=== PATIENT | female | born 1965 | race Caucasian/White ===

== ENCOUNTER → 2016-11-01 | Outpatient (CLI) | payer BC ==
[~2016-11-01] MED LIST: BCPILLS PO; BUSP1TAB46 PO; DEXL30CA5 PO; PRTUNK
[2016-11-01 11:17] LABS: BASO ABS # 0.08 K/uL (0-0.2); COMPLETE YES; EOS % 3.8 %; HEMATOCRIT 42.5 % (37-47); LYMPH % 38.6 %; LYMPH ABS # 1.54 K/uL (1.2-3.4); MEAN CELL VOLUME 94.2 fL (80-100); MEAN CORPUSCULAR HEMOGLOBIN 32.2 pg (25-34); MEAN CORPUSCULAR HGB CONC 34.1 g/dl (32-36); MEAN PLATELET VOLUME 9.6 fL (7.4-10.4); MONO % 7.5 %; NEUT % 48.1 %; PLATELET COUNT 280 K/uL (130-400); RED BLOOD COUNT 4.51 M/uL (4.2-5.4); WHITE BLOOD COUNT 3.99 K/uL (4.8-10.8)
[2016-11-01 11:40] LABS: ALT/SGPT 19 U/L (12-78); AST/SGOT 13 U/L (15-37); BLOOD UREA NITROGEN 8 mg/dl (7-18); BUN/CREATININE RATIO 9.5 (10-20); CALCIUM 8.8 mg/dl (8.5-10.1); CARBON DIOXIDE 28 mmol/L (21-32); CHLORIDE 107 mmol/L (98-107); CREATININE 0.88 mg/dl (0.60-1.20); GLUCOSE 95 mg/dl (70-99); MAGNESIUM 2.1 mg/dl (1.8-2.4); POTASSIUM 4.1 mmol/L (3.5-5.1); SODIUM 140 mmol/L (136-145)
[2016-11-01 11:46] LABS: ALB/GLOB RATIO 1.3 (0.9-2); ALKALINE PHOSPHATASE 37 U/L (45-117); CHOLESTEROL 284 mg/dl (0-200); CHOLESTEROL/HDL RATIO 3.5; HDL CHOLESTEROL 82 mg/dl; LDL CHOLESTEROL CALCULATED 181 mg/dl; TRIGLYCERIDES 105 mg/dl (0-150); VERY LOW DENSITY LIPOPROT CALC 21 mg/dl
== END | disposition home or self-care (01) ==
LOC: C.LABBC 08:42
PROVIDERS: ATTEND Nurse Practitioner Adult Health
DX: Z00.00 Encounter for general adult medical examination without abnormal findings (principal); E55.9 Vitamin D deficiency, unspecified; E72.11 Homocystinuria; E83.42 Hypomagnesemia; E78.00 Pure hypercholesterolemia, unspecified

== ENCOUNTER 2016-12-28 11:51 | Emergency (ER) | payer BC ==
[~2016-12-28] VITALS: Ht 167.6 cm; Wt 59.4 kg
[~2016-12-28 11:51] MED LIST changes: -BCPILLS PO; -BUSP1TAB46 PO; -DEXL30CA5 PO
[2016-12-28 11:53] VITALS: TEMP 37; Ht 167.6 cm; Wt 59.4 kg
[2016-12-28] MEDS ORDERED: BCPILLS PO (12:19)
[2016-12-28] MEDS ORDERED: DEXL30CA5 PO (12:19)
[2016-12-28] MEDS ORDERED: BUSP1TAB46 PO (12:19)
[2016-12-28] MEDS ORDERED: SODIUM CHLORIDE 0.9% 1000ML 500 ML IV STA (12:25)
[2016-12-28] MEDS ORDERED: IBUPROFEN 600 MG TAB PO STA (12:25)
[2016-12-28] MEDS ORDERED: ACETAMINOPHEN 500 MG TAB PO STA (12:25)
--- NOTE | 2016-12-28 12:27 | EMERGENCY ROOM VISIT NOTE ---
History Report prepared by Linda: Alexis Grant Under the Supervision of: Dr. Corwin Hernandez M.D. First contact with patient: 12:17 Chief Complaint: NEURO SYMPTOMS Stated Complaint: NUMBNESS IN ARM Nursing Triage Summary: patient has history of migraines and states that she have visual disturbances usually with loss of vision in the left eye as well. today she started with numbness and tingling and eye symptoms but were different. her face and arm where numb and tingling and then she started with a dull head ache. she called the primary care for an appointement and was told that she was to come to the ER if it was getting worse. History of Present Illness The patient is a 51 year old female with a history of migraines who presents to the Emergency Room with complaints of an episode of neuro symptoms that occurred around 3 hours ago. She says that she was walking out of her bathroom when she suddenly felt her whole left arm go completely numb. She adds that she had some visual auras as well. The patient says that she laid on her carpet, and she then started to feel her left arm again. She notes that she had some left facial tingling. The patient says that the whole episode lasted around 25 seconds. Currently, she says that her left arm just feels a bit different and there is intermittent tingling. She states that she called her primary care office prior to arrival, and was told to come here if her symptoms did not completely resolve. The patient says that she currently feels a headache coming on but it hasn't materialized yet. She states that she gets auras sometimes with her migraines, but no history of extremity symptoms with her migraines. She notes no history of strokes. The patient denies any left leg symptoms or difficulty ambulating. She does not take a blood thinner regularly. Source of History: patient Onset: 3 hours ago Position: other (global - neuro symptoms) Symptom Intensity: lasted 25 seconds Timing: other (episode) Associated Symptoms: + headache (feels it coming on), + numbness (left arm for 25 seconds) Note: Associated symptoms: Left facial tingling. Currently left arm feels different and intermittent tingling. Denies left leg symptoms or difficulty ambulating. Review of Systems See HPI for pertinent positives & negatives. A total of 10 systems reviewed and were otherwise negative. Past Medical & Surgical Medical Problems: (1) Migraine Family History Stroke Social History Smoking Status: Never Smoker Alcohol Use: occasionally Marital Status: Occupation Status: employed Current/Historical Medications Scheduled Control Pills ( Control Pills), 1 TAB PO DAILY Buspirone Hcl (Buspirone Hcl), 7.5 MG PO QPM Scheduled PRN Dexlansoprazole (Dexilant), 1 CAP PO DAILY PRN for REFLUX Allergies Coded Allergies: No Known Allergies (Verified , 04/06/11) Physical Exam Vital Signs Date Time Temp Pulse Resp B/P (MAP) Pulse Ox O2 Delivery O2 Flow Rate FiO2 12/28/16 14:48 68 20 130/79 99 12/28/16 14:02 87 20 124/87 99 Room Air 12/28/16 12:58 76 20 120/67 99 Room Air 12/28/16 11:53 37.0 91 16 121/72 97 Room Air Physical Exam GENERAL: Patient is in no acute distress. HEENT: No acute trauma, normocephalic atraumatic, mucous membranes moist, no nasal congestion, no scleral icterus. Pupils equal and reactive to light. NECK: No stridor, no adenopathy, no meningismus, trachea is midline. LUNGS: Clear to auscultation bilaterally, no wheeze, no rhonchi, breath sounds equal. HEART: Without murmurs gallops or rubs, regular rate and rhythm. ABDOMEN: Soft, nontender, bowel sounds positive, no hernias, no peritonitis. EXTREMITIES: No cyanosis or edema, full range of motion of all the joints without pain or difficulty, no signs for acute trauma. NEUROLOGIC: Oriented x 3, no acute motor or sensory deficits, no focal weakness. No cerebellar deficits. No facial droop or speech slur. No pronator drift. SKIN: No rash, no jaundice, no diaphoresis Medical Decision & Procedures ER Provider Diagnostic Interpretation: MRI results as stated below per my review and radiologist interpretation: MRI OF THE BRAIN WITHOUT AND WITH IV CONTRAST CLINICAL HISTORY: Left arm and facial numbness. Stroke versus mass versus migraine. COMPARISON STUDY: No previous studies for comparison. TECHNIQUE: MRI of the brain was performed from the vertex to the skull base utilizing various T1 and T2 weighted sequences. Following the IV administration of 5 mL of Gadavist contrast, additional enhanced images were obtained. FINDINGS: Sagittal T1, axial diffusion, proton density and T2 weighted axial, coronal FLAIR, and pre and post axial T1-weighted images were acquired. These were supplemented with post gadolinium coronal T1 weighted images. No intra or extra-axial mass lesions are visualized. Axial diffusion-weighted images reveal no evidence of acute or subacute infarction. There is no evidence of ventricular dilatation. Proton density T2-weighted and FLAIR images reveal a solitary 2 mm focus of increased FLAIR signal within the right frontal white matter. This is likely on a small vessel basis, although white matter lesions have also been reported in patients with chronic headaches. There are no abnormal flow voids. There is no evidence of pathologic enhancement. IMPRESSION: No acute intracranial findings. No evidence of intracranial mass. No evidence of acute or subacute infarction. Electronically signed by: Edilberto Chaudhry M.D. 12/28/2016 1:46 PM Dictated Date/Time: 12/28/2016 1:43 PM Laboratory Results 12/28/16 12:30 Red Blood Count 4.61, Mean Corpuscular Volume 93.1, Mean Corpuscular Hemoglobin 31.2, Mean Corpuscular Hemoglobin Concent 33.6, Mean Platelet Volume 9.0, Neutrophils (%) (Auto) 68.2, Lymphocytes (%) (Auto) 22.3, Monocytes (%) (Auto) 5.6, Eosinophils (%) (Auto) 2.6, Basophils (%) (Auto) 1.1, Neutrophils # (Auto) 5.82, Lymphocytes # (Auto) 1.90, Monocytes # (Auto) 0.48, Eosinophils # (Auto) 0.22, Basophils # (Auto) 0.09 12/28/16 12:30 Test 12/28/16 12:30 12/28/16 12:45 White Blood Count 8.53 K/uL (4.8-10.8) Red Blood Count 4.61 M/uL (4.2-5.4) Hemoglobin 14.4 g/dL (12.0-16.0) Hematocrit 42.9 % (37-47) Mean Corpuscular Volume 93.1 fL (80-100) Mean Corpuscular Hemoglobin 31.2 pg (25-34) Mean Corpuscular Hemoglobin Concent 33.6 g/dl (32-36) Platelet Count 257 K/uL (130-400) Mean Platelet Volume 9.0 fL (7.4-10.4) Neutrophils (%) (Auto) 68.2 % Lymphocytes (%) (Auto) 22.3 % Monocytes (%) (Auto) 5.6 % Eosinophils (%) (Auto) 2.6 % Basophils (%) (Auto) 1.1 % Neutrophils # (Auto) 5.82 K/uL (1.4-6.5) Lymphocytes # (Auto) 1.90 K/uL (1.2-3.4) Monocytes # (Auto) 0.48 K/uL (0.11-0.59) Eosinophils # (Auto) 0.22 K/uL (0-0.5) Basophils # (Auto) 0.09 K/uL (0-0.2) RDW Standard Deviation 40.7 fL (36.4-46.3) RDW Coefficient of Variation 12.1 % (11.5-14.5) Immature Granulocyte % (Auto) 0.2 % Immature Granulocyte # (Auto) 0.02 K/uL (0.00-0.02) Anion Gap 6.0 mmol/L (3-11) Est Creatinine Clear Calc Drug Dose 76.8 ml/min Estimated GFR () 96.7 Estimated GFR (Non- 83.4 BUN/Creatinine Ratio 11.7 (10-20) Calcium Level 8.9 mg/dl (8.5-10.1) Total Bilirubin 0.9 mg/dl (0.2-1) Aspartate Amino Transf (AST/SGOT) 15 U/L (15-37) Alanine Aminotransferase (ALT/SGPT) 16 U/L (12-78) Alkaline Phosphatase 46 U/L (45-117) Total Protein 7.4 gm/dl (6.4-8.2) Albumin 3.9 gm/dl (3.4-5.0) Globulin 3.5 gm/dl (2.5-4.0) Albumin/Globulin Ratio 1.1 (0.9-2) Thyroid Stimulating Hormone (TSH) 0.694 uIu/ml (0.300-4.500) Urine Color YELLOW Urine Appearance CLEAR (CLEAR) Urine pH 5.5 (4.5-7.5) Urine Specific [place] 1.010 (1.000-1.030) Urine Protein NEG (NEG) Urine Glucose (UA) NEG (NEG) Urine Ketones NEG (NEG) Urine Occult Blood NEG (NEG) Urine Nitrite NEG (NEG) Urine Bilirubin NEG (NEG) Urine Urobilinogen NEG (NEG) Urine Leukocyte Esterase NEG (NEG) Laboratory results reviewed by me. Medications Administered Medications (Trade) Dose Ordered Sig/Ronda Route Start Time Stop Time Status Last Admin Dose Admin Sodium Chloride 500 ml @ 999 mls/hr Q31M STAT IV 12/28/16 12:25 12/28/16 12:55 DC 12/28/16 12:25 999 MLS/HR Acetaminophen (Tylenol Tab) 1,000 mg NOW STAT PO 12/28/16 12:25 12/28/16 12:29 DC 12/28/16 12:54 1,000 MG Ibuprofen (Motrin Tab) 600 mg NOW STAT PO 12/28/16 12:25 12/28/16 12:29 DC 12/28/16 12:53 600 MG ECG Indication: other (one-sided numbness) Rate (beats per minute): 75 Rhythm: normal sinus Findings: no acute ischemic change, no ectopy ED Course 1217: The patient was evaluated in room C9. A complete history and physical exam was performed. 1225: Ordered Motrin Tab 600 mg PO, Tylenol Tab 1000 mg PO, NSS 500 ml @ 999 mls /hr IV. 1432: I reevaluated the patient and she is resting. The patient verbally expressed understanding and agreement of the treatment plan. The patient will be discharged. Medical Decision Differential diagnosis includes but is not limited to complex migraine, TIA, stroke, intracranial mass, intracranial bleeding, electrolyte imbalance, anemia , thyroid disorder. There is no leukocytosis or concerning anemia. No significant electrolyte abnormality, kidney failure or hepatitis. The patient appears to be in a euthyroid state. Urinalysis does not show infection. Brain MRI shows no mass or stroke or other concerning lesion. On exam, the patient was not febrile. She was not toxic. She had a normal neurologic evaluation. Patient received oral Motrin and oral Tylenol, she was given IV saline. She is doing well. She is being discharged with outpatient follow-up, likely a neurology referral. I have advised a baby aspirin for now. Certainly, TIA is a possibility but I do think complex migraine is more likely the cause for her symptoms. She was encouraged to return if worsening. Medication Reconcilliation Current Medication List: was personally reviewed by me Blood Pressure Screening Patient's blood pressure: Normal blood pressure Impression Primary Impression: Left arm numbness Additional Impression: Headache Scribe Attestation The scribe's documentation has been prepared under my direction and personally reviewed by me in its entirety. I confirm that the note above accurately reflects all work, treatment, procedures, and medical decision making performed by me. Departure Information Dispostion Home / Self-Care Referrals No Doctor, Assigned (PCP) Leslie Francois C.R.N.P. Patient Instructions [facility] Additional Instructions talk with your doctor about a neurology referral baby aspirin daily for now return for worsening symptoms lab testing and MRI today were normal Problem Qualifiers Additional Impression: Headache Headache type: unspecified Headache chronicity pattern: unspecified pattern Intractability: not intractable Qualified Codes: R51 - Headache
[2016-12-28 12:55] LABS: BASO % 1.1 %; BASO ABS # 0.09 K/uL (0-0.2); COMPLETE YES; EOS % 2.6 %; HEMATOCRIT 42.9 % (37-47); IG% 0.2 %; LYMPH % 22.3 %; MEAN CELL VOLUME 93.1 fL (80-100); MEAN CORPUSCULAR HEMOGLOBIN 31.2 pg (25-34); MEAN CORPUSCULAR HGB CONC 33.6 g/dl (32-36); MONO % 5.6 %; NEUT % 68.2 %; PLATELET COUNT 257 K/uL (130-400); RED BLOOD COUNT 4.61 M/uL (4.2-5.4); WHITE BLOOD COUNT 8.53 K/uL (4.8-10.8)
[2016-12-28 13:02] LABS: URINE APPEARANCE CLEAR (CLEAR); URINE BILIRUBIN NEG (NEG); URINE COLOR YELLOW; URINE NITRITE NEG (NEG); URINE PH 5.5 (4.5-7.5); UROBILINOGEN NEG (NEG); ZZUR CULT IF INDIC CLEAN CATCH NO
[2016-12-28 13:10] LABS: BUN/CREATININE RATIO 11.7 (10-20); CALCIUM 8.9 mg/dl (8.5-10.1); CREATININE 0.82 mg/dl (0.60-1.20); POTASSIUM 3.7 mmol/L (3.5-5.1)
[2016-12-28 13:12] LABS: MANUAL MICROSCOPIC REQUIRED? NO; REVIEW REQ? NO
[2016-12-28 13:20] LABS: ALB/GLOB RATIO 1.1 (0.9-2); THYROID STIMULATING HORMONE 0.694 uIu/ml (0.300-4.500)
--- NOTE | 2016-12-28 13:47 | DIAGNOSTIC IMAGING REPORT ---
MRI OF THE BRAIN WITHOUT AND WITH IV CONTRAST CLINICAL HISTORY: Left arm and facial numbness. Stroke versus mass versus migraine. COMPARISON STUDY: No previous studies for comparison. TECHNIQUE: MRI of the brain was performed from the vertex to the skull base utilizing various T1 and T2 weighted sequences. Following the IV administration of 5 mL of Gadavist contrast, additional enhanced images were obtained. FINDINGS: Sagittal T1, axial diffusion, proton density and T2 weighted axial, coronal FLAIR, and pre and post axial T1-weighted images were acquired. These were supplemented with post gadolinium coronal T1 weighted images. No intra or extra-axial mass lesions are visualized. Axial diffusion-weighted images reveal no evidence of acute or subacute infarction. There is no evidence of ventricular dilatation. Proton density T2-weighted and FLAIR images reveal a solitary 2 mm focus of increased FLAIR signal within the right frontal white matter. This is likely on a small vessel basis, although white matter lesions have also been reported in patients with chronic headaches. There are no abnormal flow voids. There is no evidence of pathologic enhancement. IMPRESSION: No acute intracranial findings. No evidence of intracranial mass. No evidence of acute or subacute infarction. Electronically signed by: Edilberto Chaudhry M.D. 12/28/2016 1:46 PM Dictated Date/Time: 12/28/2016 1:43 PM
[2016-12-28 14:48] VITALS: BP 130/79; PULSE 68; O2SAT 99
== END 2016-12-28 14:50 | disposition home or self-care (01) ==
LOC: C.EDB 11:52 → C.EDC 14:50
DX: R20.0 Anesthesia of skin (principal); R51 Headache; Z82.3 Family history of stroke; Z79.3 Long term (current) use of hormonal contraceptives; Z79.899 Other long term (current) drug therapy

== ENCOUNTER → 2017-03-06 | Outpatient (CLI) | payer BC ==
[~2017-03-06] MED LIST changes: +BCPILLS PO; +BUSP1TAB46 PO; +DEXL30CA5 PO; -PRTUNK
--- NOTE | 2017-03-06 16:53 | EEG Procedure Note ---
EEG Procedure Note Date of Service Mar 06, 2017. Start / End Times Start Time: 2:42 PM End Time: 3:02 PM Referring Physician CHAPO Acosta History This is a 51-year-old female with episodes of left arm paresthesias. EEG for further evaluation of possible seizure etiology. Home Medication List Scheduled Control Pills ( Control Pills), 1 TAB PO DAILY Buspirone Hcl (Buspirone Hcl), 7.5 MG PO QPM Scheduled PRN Dexlansoprazole (Dexilant), 1 CAP PO DAILY PRN for REFLUX Description This is a 21 electrode EEG with a single channel dedicated to limited EKG. The electrodes were placed in accordance with the International 10-20 system. At the start of the recording the patient was in an awake state. Background was well organized and composed of symmetric mixed alpha and beta frequencies. There was a symmetric well-formed moderate amplitude 9-10 Hz posterior dominant rhythm that was reactive to eye opening and closure. Hyperventilation was not done. Intermittent photic stimulation at various frequencies produced no abnormalities. Drowsiness was indicated by loss of muscle artifact, slowing of the background rhythm, and vertex waves. There was no stage II sleep. Interpretation This is a normal awake and drowsy routine EEG. There was no electrographic seizures or epileptiform discharges. Clinical Correlation A normal EEG does not rule out epilepsy if there is a strong clinical suspicion.
== END | disposition home or self-care (01) ==
LOC: C.NEUR 14:26
PROVIDERS: ATTEND Physician Assistant
DX: R20.2 Paresthesia of skin (principal)